=== PATIENT | male | born 1980 | race Caucasian/White ===

== ENCOUNTER 2016-07-14 09:47 | Emergency (ER) | payer MEDICAID ==
[2013-06-19 03:34] VITALS: BMI 25.1
== END 2016-07-14 12:30 | disposition home or self-care (01) ==
LOC: D.ER 09:47
DX: M54.12 Radiculopathy, cervical region (principal)

== ENCOUNTER 2016-09-04 10:44 | Emergency (ER) | payer MEDICAID ==
[2013-06-19 03:34] VITALS: BMI 25.1
== END 2016-09-04 12:24 | disposition home or self-care (01) ==
LOC: D.ER 10:44
DX: S39.012A Strain of muscle, fascia and tendon of lower back, initial encounter (principal); V89.2XXA Person injured in unspecified motor-vehicle accident, traffic, initial encounter; Y93.89 Activity, other specified; Y92.410 Unspecified street and highway as the place of occurrence of the external cause; M62.830 Muscle spasm of back

== ENCOUNTER 2017-09-18 10:31 | Emergency (ER) | payer MEDICAID ==
[2013-06-19 03:34] VITALS: BMI 25.1
== END 2017-09-18 12:06 | disposition home or self-care (01) ==
LOC: D.ER 10:31
DX: J06.9 Acute upper respiratory infection, unspecified (principal); J01.90 Acute sinusitis, unspecified

== ENCOUNTER 2017-10-23 08:43 | Emergency (ER) | payer MEDICAID ==
[2013-06-19 03:34] VITALS: BMI 25.1
== END 2017-10-23 10:04 | disposition home or self-care (01) ==
LOC: D.ER 08:43
DX: J02.9 Acute pharyngitis, unspecified (principal)

== ENCOUNTER 2018-10-04 14:10 | Emergency (ER) | payer SELFPAY ==
[2013-06-19 03:34] VITALS: BMI 25.1
== END 2018-10-04 14:30 | disposition left against medical advice (07) ==
LOC: D.ER 14:10
DX: M25.572 Pain in left ankle and joints of left foot (principal)